=== PATIENT | female | born 1930 | race Caucasian/White ===

== ENCOUNTER 2017-06-02 19:21 | Emergency (ER) | payer OTHER ==
[~2017-06-02] VITALS: Ht 152.4 cm; Wt 72.6 kg
[~2017-06-02 19:21] MED LIST: Armour Thyroid15 MG PO; B-12250 MCG; CITA20 PO
[2017-07-09] MEDS ORDERED: THYR60 PO (16:27)
[2017-07-09] MEDS ORDERED: EFFER K PO (16:29)
[2017-07-09] MEDS ORDERED: FURO20 PO (16:29)
[2017-07-09] MEDS ORDERED: CYAN500 PO (16:30)
[2017-07-09] MEDS ORDERED: POTA8 PO (16:30)
[2017-07-09] MEDS ORDERED: Calicum 500+D1 EACH (16:31)
[2017-07-09] MEDS ORDERED: DOCU100 PO (16:32)
[2017-07-09] MEDS ORDERED: GUAI600T33 PO (16:33)
[2017-07-21] MEDS ORDERED: Hair, Skin & N1 EACH PO (07:39)
[2017-07-21] MEDS ORDERED: Colace100 MG PO (07:40)
[2017-07-21] MEDS ORDERED: HYDR1TAB94 PO (07:41)
== END 2017-06-03 02:10 | disposition home or self-care (01) ==
LOC: ER 19:21
DX: M25.551 Pain in right hip (principal); E03.9 Hypothyroidism, unspecified; F03.90 Unspecified dementia, unspecified severity, without behavioral disturbance, psychotic disturbance, mood disturbance, and anxiety; Z79.899 Other long term (current) drug therapy; W19.XXXA Unspecified fall, initial encounter
CPT/HCPCS: 29130; 70450; 72125; 73502; 73552; 73560-RT; 73700; 99284

== ENCOUNTER 2017-06-07 18:35 | Emergency (ER) | payer OTHER ==
[~2017-06-07] VITALS: Ht 157.5 cm; Wt 63.5 kg
[2017-06-07 19:50] LABS: BASOPHILS ABSOLUTE AUTO 0.01 K/mm3 (0.00-0.23); BASOPHILS PERCENT AUTO 0 % (0-2); EOSINOPHILS ABSOLUTE AUTO 0.01 K/mm3 (0.00-0.68); EOSINOPHILS PERCENT AUTO 0 % (0-6); Hematocrit 35.2 % (33.0-51.0); Hemoglobin 11.6 g/dL (11.5-16.0); IMMATURE GRAN ABSOLUTE AUTO 0.04 K/mm3 (0.00-0.10); IMMATURE GRAN PERCENT AUTO 1 % (0-1); LYMPHOCYTES ABSOLUTE AUTO 0.48 K/mm3 (0.84-5.20); LYMPHOCYTES PERCENT AUTO 6 % (21-46); MONOCYTES ABSOLUTE AUTO 0.69 K/mm3 (0.16-1.47); MONOCYTES PERCENT AUTO 9 % (4-13); Mean Corpuscular HGB 29.4 pg (26.0-34.0); Mean Corpuscular Volume 89 fL (80-100); NEUTROPHILS ABSOLUTE AUTO 6.73 K/mm3 (1.96-9.15); NEUTROPHILS PERCENT AUTO 85 % (41-73); Platelet Count 175 K/mm3 (150-400); RDW Coefficient Variation 14.4 % (11.7-14.2); RDW Standard Deviation 46.5 fL (35.1-46.3); Red Blood Cell Count 3.94 M/mm3 (3.80-5.20); White Blood Cell Count 7.96 K/mm3 (4.00-11.30)
[2017-06-07 20:30] LABS: Troponin I 0.041 ng/mL (0.000-0.040)
[2017-06-07 20:38] LABS: Albumin, Blood 3.6 g/dL (3.4-5.0); Albumin/Globulin Ratio 1.1 (0.8-1.8); Bilirubin, Total 0.7 mg/dL (0.1-1.0); Bun/Creatinine Ratio 26.7 (12.0-20.0); Calcium, Blood 9.1 mg/dL (8.5-10.1); Creatinine, Blood 1.05 mg/dL (0.40-1.00); Globulin, Blood 3.2 g/dL (2.2-4.0); Potassium, Blood 3.3 mmol/L (3.5-5.5); Total Protein, Blood 6.8 g/dL (6.4-8.2)
[2017-06-07 20:52] LABS: Source, Urine Catheter
[2017-06-07 21:00] LABS: Bilirubin, Urine Neg (Neg); Blood, Urine 4+ (Neg); Glucose Qualitative, Urine Neg (Neg); Ketones, Urine 1+ (Neg); Leukocyte Esterase, Urine 1+ (Neg); Nitrite, Urine Pos (Neg); Protein, Urine 2+ (Neg); Urobilinogen, Urine NORM (Normal)
[2017-06-07 21:03] LABS: Appearance, Urine Hazy (Clear); Color, Urine Yellow (P-Yellow)
[2017-06-07 21:37] LABS: Bacteria Many /hpf; Red Blood Cells, Urine 0-2 /hpf (0-2); Squamous Epithelial Cells Not Seen /hpf (Few)
[2017-06-07] MEDS ORDERED: LIDO700A20 TOP (22:01)
[2017-06-07] MEDS ORDERED: CEPH500 PO (22:01)
[2017-07-09] MEDS ORDERED: THYR60 PO (16:27)
[2017-07-09] MEDS ORDERED: EFFER K PO (16:29)
[2017-07-09] MEDS ORDERED: FURO20 PO (16:29)
[2017-07-09] MEDS ORDERED: POTA8 PO (16:30)
[2017-07-09] MEDS ORDERED: CYAN500 PO (16:30)
[2017-07-09] MEDS ORDERED: Calicum 500+D1 EACH (16:31)
[2017-07-09] MEDS ORDERED: DOCU100 PO (16:32)
[2017-07-09] MEDS ORDERED: GUAI600T33 PO (16:33)
[2017-07-21] MEDS ORDERED: Hair, Skin & N1 EACH PO (07:39)
[2017-07-21] MEDS ORDERED: Colace100 MG PO (07:40)
[2017-07-21] MEDS ORDERED: HYDR1TAB94 PO (07:41)
== END 2017-06-07 22:30 | disposition home or self-care (01) ==
LOC: ER 18:35
PROVIDERS: Emergency Medicine
DX: K59.00 Constipation, unspecified (principal); N30.00 Acute cystitis without hematuria; S32.019A Unspecified fracture of first lumbar vertebra, initial encounter for closed fracture; E03.9 Hypothyroidism, unspecified; F03.90 Unspecified dementia, unspecified severity, without behavioral disturbance, psychotic disturbance, mood disturbance, and anxiety; Z88.8 Allergy status to other drugs, medicaments and biological substances; Z79.899 Other long term (current) drug therapy; X58.XXXA Exposure to other specified factors, initial encounter
CPT/HCPCS: 36415; 51798; 74019; 74177; 80053; 81001; 84484; 85025; 87077; 87086; 87186; 96361; 96374; 99284; J0696; J7030; P9612; Q9967

== ENCOUNTER → 2018-08-24 | Outpatient (CLI) | payer OTHER ==
[~2018-08-24] MED LIST changes: +CEPH500 PO; +CYAN500 PO; +Calicum 500+D1 EACH; +Colace100 MG PO; +DOCU100 PO; +EFFER K PO; +FURO20 PO; +GUAI600T33 PO; +HYDR1TAB94 PO; +Hair, Skin & N1 EACH PO; +LIDO700A20 TOP; +POTA8 PO; +THYR60 PO
[2018-08-24 19:13] LABS: Source, Urine Clean Catch
[2018-08-24 19:24] LABS: Bilirubin, Urine Neg (Neg); Blood, Urine 2+ (Neg); Glucose Qualitative, Urine Neg (Neg); Ketones, Urine Neg (Neg); Leukocyte Esterase, Urine 3+ (Neg); Nitrite, Urine Pos (Neg); Protein, Urine 1+ (Neg); Urobilinogen, Urine NORM (Normal)
[2018-08-24 19:33] LABS: Appearance, Urine Hazy (Clear); Color, Urine Yellow (P-Yellow)
[2018-08-24 19:34] LABS: Squamous Epithelial Cells Few /hpf (Few); White Blood Cells, Urine 25-50 /hpf (0-5)
[2018-08-24 19:35] LABS: Bacteria Many /hpf
== END | disposition home or self-care (01) ==
LOC: LAB SHORT 19:11 → LAB 19:11
DX: N39.0 Urinary tract infection, site not specified (principal)
CPT/HCPCS: 81001; 87077; 87086; 87186

== ENCOUNTER → 2018-09-13 | Outpatient (CLI) | payer OTHER ==
[2018-09-14 07:37] LABS: Source, Urine Clean Catch
[2018-09-14 07:50] LABS: Bilirubin, Urine Neg (Neg); Blood, Urine 2+ (Neg); Glucose Qualitative, Urine Neg (Neg); Ketones, Urine Neg (Neg); Leukocyte Esterase, Urine 3+ (Neg); Nitrite, Urine Pos (Neg); Protein, Urine 1+ (Neg); Urobilinogen, Urine NORM (Normal)
[2018-09-14 07:55] LABS: Appearance, Urine Cloudy (Clear); Color, Urine Yellow (P-Yellow)
[2018-09-14 07:57] LABS: White Blood Cells, Urine TNTC /hpf (0-5)
[2018-09-14 07:58] LABS: Bacteria Many /hpf; Squamous Epithelial Cells Not Seen /hpf (Few)
== END | disposition home or self-care (01) ==
LOC: LAB 10:15 → LAB SHORT 10:15
DX: N39.0 Urinary tract infection, site not specified (principal)
CPT/HCPCS: 81001; 87077; 87086; 87186